=== PATIENT | female | born 1985 | race Asian ===

== ENCOUNTER 2019-07-26 18:20 | Emergency (ER) | payer BC ==
[~2019-07-26] VITALS: Ht 165.1 cm; Wt 61.2 kg
[2019-07-26 18:39] VITALS: BP_SYST 116
--- NOTE | 2019-07-26 18:46 | NUR ---
Patient triaged and placed in waiting room. VSS and patient appears in no acute distress at this time. Accompanied by , awaiting available bed, and MD notified of need for MSE.
[2019-07-26 19:30] LABS: BILIRUBIN,URINE NEGATIVE (NEGATIVE); BLOOD, URINE 3+ (NEGATIVE); CLARITY/URINE TURBID (CLEAR); COLOR,URINE RED (YELLOW); GLUCOSE,URINE NEGATIVE (NEGATIVE); KETONES,URINE NEGATIVE (NEGATIVE); LEUKOCYTE ESTERASE ,URINE 1+ (NEGATIVE); NITRITE, URINE NEGATIVE (NEGATIVE); PROTEIN URINE 3+ (NEGATIVE); UROBILINOGEN,URINE 0.2 (0.2-1.0)
[2019-07-26 19:35] LABS: RBC,URINE >100 /HPF (0-3)
[2019-07-26 19:36] LABS: BACTERIA,URINE FEW /HPF (None Seen)
[2019-07-26 19:37] LABS: MUCUS,URINE None Seen /LPF (None Seen)
--- NOTE | 2019-07-26 21:01 | NUR ---
Pt placed to ER chair 1. Pt with urinary retention, frequency, burning and hematuria since yesterday, worse today.
--- NOTE | 2019-07-26 21:10 | NUR ---
Dr. Gamboa assessing pt.
[2019-07-26 21:30] VITALS: BP_SYST 110
[2019-07-26] MEDS ORDERED: NITROFURANTOIN MONOHYD/M-CRYST 100 MG CAPSULE PO ONE ×2 (21:30→21:41)
--- NOTE | 2019-07-26 21:30 | NUR ---
Patient given written and verbal discharge instructions and verbalizes understanding. ER MD discussed with patient the results and treatment provided. Patient in stable condition. ID arm band removed. Rx of Macrobid and Pyridium given. Patient educated on pain management and to follow up with PMD. Pain Scale 1/10. Opportunity for questions provided and answered. Medication side effect fact sheet provided.
== END 2019-07-26 21:30 | disposition home or self-care (01) ==
LOC: SED 18:20
DX: N39.0 Urinary tract infection, site not specified (principal); G43.909 Migraine, unspecified, not intractable, without status migrainosus
CPT/HCPCS: 81000-TC; 81025; 87086; 99283